=== PATIENT | female | born 1995 | race Caucasian/White ===

== ENCOUNTER 2017-02-23 21:11 | Emergency (ER) | payer OTHER ==
[2017-02-23] MEDS ORDERED: SODIUM CHLORIDE 0.9% 1,000 ML IV ONE (21:28)
--- NOTE | 2017-02-23 21:43 | ED Physician Documentation ---
PD HPI ABD PAIN - Stated complaint Stated Complaint: N/V/LT SIDE PX - Chief complaint Chief Complaint: Abd Pain - History obtained from History obtained from: Patient - History of Present Illness Timing - onset: How many hours ago (approximately 1 hour [employer]) Timing - duration: Hours (1) Timing - details: Abrupt onset, Constant Pain level max: 10 Pain level now: 10 Quality: Pain Location: LUQ Radiation: Lower back, Left flank Improved by: Other (no ameliorating factors) Worsened by: Other (no exacerbating factors) Associated symptoms: Nausea. No: Fever Similar symptoms before: Has not had sx before Recently seen: Other (recently seen by dentistry) - Additional information Additional information: sudden onset left back and left flank pain while at home taking a shower Review of Systems Cardiac: reports: Reviewed and negative Respiratory: reports: Reviewed and negative GI: reports: Abdominal Pain, Nausea. denies: Vomiting : denies: Dysuria, Frequency PD PAST MEDICAL HISTORY - Past Medical History Past Medical History: Yes Psych: Depression, Anxiety - Past Surgical History Past Surgical History: Yes General: Appendectomy Cardiovascular: Other - Present Medications Home Medications: Ambulatory Orders Medication Instructions Recorded Confirmed [facility] 02/23/17 Sertraline HCl 50 mg PO DAILY 02/23/17 02/23/17 - Allergies Allergies/Adverse Reactions: Allergies Allergy/AdvReac Type Severity Reaction Status Date / Time No Known Drug Allergies Allergy Verified 02/23/17 21:23 - Social History Does the pt smoke?: No Smoking Status: Never smoker Does the pt drink ETOH?: No Does the pt have substance abuse?: No - Immunizations Immunizations are current?: Yes - POLST Patient has POLST: No PD ED PE NORMAL - Vitals Vital signs reviewed: Yes - General General: Alert and oriented X 3, Well developed/nourished, Other (obvious severe painful distress) - HEENT HEENT: Moist mucous membranes - Neck Neck: Supple, no meningeal sign - Cardiac Cardiac: RRR, No murmur - Respiratory Respiratory: No respiratory distress, Clear bilaterally - Abdomen Abdomen: Soft, Non distended, Other (mild TTP left upper and left lower quadrants without rebound or guarding) - Back Back: No CVA TTP - Derm Derm: Other (pale, diaphoretic) Results - Vitals Vitals: Vital Signs - 24 hr 02/23/17 02/23/17 02/23/17 21:21 21:42 22:35 Temperature 36.1 C L Heart Rate 64 69 64 Respiratory 20 20 14 Rate Blood Pressure 141/100 H 118/81 H 133/71 H O2 Saturation 100 100 100 02/23/17 02/24/17 23:11 00:51 Temperature Heart Rate 57 L 55 L Respiratory 14 15 Rate Blood Pressure 131/66 H 132/63 H O2 Saturation 99 100 Oxygen O2 Source Room air - Labs Labs: Laboratory Tests 02/23/17 02/23/17 02/23/17 21:37 21:37 22:41 WBC 10.0 RBC 4.73 Hgb 13.6 Hct 40.3 MCV 85.2 MCH 28.7 MCHC 33.6 RDW 12.5 Plt Count 258 MPV 8.2 Neut # 5.3 Lymph # 3.6 H [place] # 0.8 Eos # 0.1 Baso # 0.1 Absolute Nucleated RBC 0.01 Nucleated RBCs 0.1 Sodium 138 Potassium 3.1 L Chloride 105 Carbon Dioxide 24 Anion Gap 9.0 BUN 11 Creatinine 1.1 H Estimated GFR (MDRD) 62 L Glucose 133 H Calcium 9.3 Total Bilirubin 0.3 AST 29 ALT 24 Alkaline Phosphatase 38 L Total Protein 7.2 Albumin 4.2 Globulin 3.0 Albumin/Globulin Ratio 1.4 Lipase 31 Urine Color Urine Clarity Urine pH Ur Specific [place] >1.030 Urine Protein Urine Glucose (UA) Urine Ketones Urine Occult Blood Urine Nitrite Urine Bilirubin Urine Urobilinogen Ur Leukocyte Esterase Urine RBC Urine WBC Ur Squamous Epith Cells Urine Bacteria Ur Microscopic Review Urine Culture Comments Urine HCG, Qual NEGATIVE 02/23/17 Unknown WBC RBC Hgb Hct MCV MCH MCHC RDW Plt Count MPV Neut # Lymph # [place] # Eos # Baso # Absolute Nucleated RBC Nucleated RBCs Sodium Potassium Chloride Carbon Dioxide Anion Gap BUN Creatinine Estimated GFR (MDRD) Glucose Calcium Total Bilirubin AST ALT Alkaline Phosphatase Total Protein Albumin Globulin Albumin/Globulin Ratio Lipase Urine Color YELLOW Urine Clarity CLEAR Urine pH 6.0 Ur Specific [place] >=1.030 H Urine Protein NEGATIVE Urine Glucose (UA) NEGATIVE Urine Ketones NEGATIVE Urine Occult Blood LARGE H Urine Nitrite NEGATIVE Urine Bilirubin NEGATIVE Urine Urobilinogen 0.2 (NORMAL) Ur Leukocyte Esterase NEGATIVE Urine RBC 11-25 H Urine WBC 0-3 Ur Squamous Epith Cells MOD Squamous H Urine Bacteria Few Ur Microscopic Review INDICATED Urine Culture Comments NOT INDICATED Urine HCG, Qual - Rads (name of study) CT A/P Radiology: Prelim report reviewed, See rad report PD MEDICAL DECISION MAKING - ED course Complexity details: reviewed results, re-evaluated patient, considered differential, d/w patient ED course: On reevaluation, after tests and CT resulted, patient reports resolution of her pain. Results discussed and f/u recommendations discussed as well Departure - Departure Disposition: 01 Home, Self Care Clinical Impression: Renal colic Condition: Good Instructions: ED Stone Renal W Colic Follow-Up: Debi Alvarez PA-C [Primary Care Provider] - Discharge Date/Time: 02/24/17 01:01
[2017-02-23 21:45] LABS: BASOPHILS # (AUTO) 0.1 10^3/uL (0.0-0.1); BASOPHILS % (AUTO) 0.6 %; EOSINOPHILS # (AUTO) 0.1 10^3/uL (0.0-0.7); HCT - HEMATOCRIT 40.3 % (37.0-47.0); HGB - HEMOGLOBIN 13.6 g/dL (12.0-16.0); LYMPHOCYTES # (AUTO) 3.6 10^3/uL (1.5-3.5); LYMPHOCYTES % (AUTO) 36.4 %; MEAN CORPUSCULAR HEMOGLOBIN 28.7 pg (27.0-31.0); MEAN CORPUSCULAR HGB CONC 33.6 g/dL (32.0-36.0); MEAN CORPUSCULAR VOLUME 85.2 fL (81.0-99.0); MEAN PLATELET VOLUME 8.2 fL (7.9-10.8); MONOCYTES # (AUTO) 0.8 10^3/uL (0.0-1.0); MONOCYTES % (AUTO) 8.5 %; NEUTROPHILS # (AUTO) 5.3 10^3/uL (1.5-6.6); NEUTROPHILS % (AUTO) 53.5 %; NUCLEATED RED BLOOD CELLS AUTO 0.1 /100WBC; RED BLOOD COUNT 4.73 10^6/uL (4.20-5.40); RED CELL DISTRIBUTION WIDTH 12.5 % (12.0-15.0)
[2017-02-23] MEDS ORDERED: ONDANSETRON 4 MG/2 ML VIAL IVP STA (21:46)
[2017-02-23] MEDS ORDERED: HYDROmorphone 1 MG/ML SYRINGE IVP STA (21:46)
[2017-02-23] MEDS ORDERED: KETOROLAC 60 MG/2 ML VIAL IVP STA ×2 (21:46→22:47)
[2017-02-23] MEDS ORDERED: KETOROLAC 30 MG/ML VIAL ONE ×2 (21:53→22:52)
[2017-02-23] MEDS ORDERED: HYDROmorphone 1 MG/ML SYRINGE ONE (21:53)
[2017-02-23] MEDS ORDERED: ONDANSETRON 4 MG/2 ML VIAL ONE (21:53)
[2017-02-23 21:55] LABS: ALBUMIN/GLOBULIN RATIO 1.4 (1.0-2.2); BILIRUBIN,TOTAL 0.3 mg/dL (0.2-1.0); CALCIUM 9.3 mg/dL (8.5-10.3); CREATININE 1.1 mg/dL (0.4-1.0); POTASSIUM 3.1 mmol/L (3.5-5.0); TOTAL PROTEIN 7.2 g/dL (6.7-8.2)
[2017-02-23 23:04] LABS: BILIRUBIN,URINE NEGATIVE (NEGATIVE)
[2017-02-23 23:07] LABS: UA w/ MICROSCOPIC CHARGE YES
[2017-02-23 23:08] LABS: HCG UR QUAL NEGATIVE
[2017-02-23 23:13] LABS: UR CULTURE IF IND NOT INDICATED; WBC,URINE 0-3 /HPF (0-5)
--- NOTE | 2017-02-23 23:53 | CT Preliminary Report ---
Exam: CT Abdomen/Pelvis W/O IMPRESSION: 1. Nonobstructing 1 mm left vesicoureteral junction stone. [facility] SITE ID: [id number]
--- NOTE | 2017-02-23 23:56 | CT Report ---
EXAM: CT ABDOMEN AND PELVIS (CT KUB) EXAM DATE: 02/23/2017 11:29 PM. CLINICAL HISTORY: Left flank pain. COMPARISONS: None. TECHNIQUE: Routine axial helical CT imaging was performed through the abdomen and pelvis without IV c ontrast. Reconstructions: Coronal and sagittal. In accordance with CT protocol optimization, one or more of the following dose reduction techniques w ere utilized for this exam: automated exposure control, adjustment of mA and/or KV based on patient s ize, or use of iterative reconstructive technique. FINDINGS: Lung Bases: Unremarkable. Right Kidney/Ureter: No stones, hydronephrosis, or hydroureter. No perinephric fat stranding. Left Kidney/Ureter: Faint, 1 mm nonobstructing stone at the left vesicoureteral junction series 3 [id number]. No other stones seen. Other Solid Organs: Noncontrast images of the solid organs are grossly unremarkable. Gallbladder/Bile Ducts: Unremarkable. Peritoneal Cavity: No bowel obstruction. No free air or fluid collections. The appendix has been eric gerson. Pelvic Organs: No bladder stones or wall thickening. Noncontrast images of the visualized pelvic orga ns are unremarkable. Vasculature: Unremarkable. Other: None. IMPRESSION: 1. Nonobstructing 1 mm left vesicoureteral junction stone. [facility] Referring Provider Line: [phone] SITE ID: [id number]
[2017-02-24] MEDS ORDERED: HYDROcod/ACET 5/325 Prepack 6 PO STA (00:37)
[2017-02-24] MEDS ORDERED: HYDROcod/ACET 5/325 Prepack 6 PO ONE (00:46)
[2017-02-24 00:54] VITALS: BP 132/63
== END 2017-02-24 01:01 | disposition home or self-care (01) ==
LOC: ED 21:11
DX: N23 Unspecified renal colic (principal)
CPT/HCPCS: 36415; 74176; 80053; 81001; 81025; 83690; 85025; 96374; 96375; 99284; J1170; 81003; 87086